=== PATIENT | male | born 1940 | race Caucasian/White ===

== ENCOUNTER 2021-12-25 14:19 | Outpatient (CLI) | payer MEDICARE, OTHER ==
[2021-12-25 20:41] LABS: CALCIUM 9.2 mg/dL (8.5-10.3); CREATININE 0.9 mg/dL (0.6-1.2); MAGNESIUM 2.1 mg/dL (1.7-2.8); POTASSIUM 4.3 mmol/L (3.5-5.0)
== END 2021-12-25 14:20 | disposition home or self-care (01) ==
LOC: LAB.S 14:19
DX: I49.3 Ventricular premature depolarization (principal)
CPT/HCPCS: 36415; 80048; 83735

== ENCOUNTER 2022-03-08 08:00 | Outpatient (CLI) | payer MEDICARE, OTHER ==
--- NOTE | 2022-03-08 11:44 | XRAY Report ---
PROCEDURE: Abdomen 1 View X-Ray INDICATIONS: ABDOMINAL BLOATING TECHNIQUE: One view of the abdomen acquired. COMPARISON: None FINDINGS: Surgical changes and devices: Postsurgical changes are noted in right abdomen with multiple sutures s een.. Bowel: Bowel gas pattern is nonobstructive. No gross pneumoperitoneum. Soft tissues: No suspicious abdominal calcifications. Visualized solid organ contours appear normal in size. Bones: No suspicious bony lesions. IMPRESSION: No evidence of bowel obstruction or gross free air. No abnormal renal calcifications are seen. Postsu rgical changes in right abdomen. Reviewed by: Bhaskar Maya MD on 03/08/2022 11:43 AM PDT Approved by: Bhaskar Maya MD on 03/08/2022 11:43 AM PDT Station ID: [id number]
== END 2022-03-08 23:59 | disposition home or self-care (01) ==
LOC: DI.S 08:00
PROVIDERS: ATTEND Physician Assistant Medical
DX: R14.0 Abdominal distension (gaseous) (principal)

== ENCOUNTER 2022-03-10 08:15 | Emergency (ER) | payer MEDICARE, OTHER ==
[2022-03-10 09:05] LABS: BASOPHILS # (AUTO) 0.1 10^3/uL (0.0-0.1); EOSINOPHILS # (AUTO) 0.2 10^3/uL (0.0-0.7); EOSINOPHILS % (AUTO) 2.5 %; HCT - HEMATOCRIT 46.8 % (42.0-52.0); HGB - HEMOGLOBIN 15.4 g/dL (14.0-18.0); LYMPHOCYTES # (AUTO) 1.8 10^3/uL (1.5-3.5); LYMPHOCYTES % (AUTO) 29.4 %; MEAN CORPUSCULAR HEMOGLOBIN 32.4 pg (27.0-31.0); MEAN CORPUSCULAR HGB CONC 32.9 g/dL (32.0-36.0); MEAN CORPUSCULAR VOLUME 98.5 fL (80.0-94.0); MEAN PLATELET VOLUME 9.1 fL (7.4-11.4); MONOCYTES # (AUTO) 0.8 10^3/uL (0.0-1.0); MONOCYTES % (AUTO) 12.5 %; NEUTROPHILS # (AUTO) 3.3 10^3/uL (1.5-6.6); NEUTROPHILS % (AUTO) 54.4 %; PLT - PLATELET COUNT 174 10^3/uL (130-450); RED BLOOD COUNT 4.75 10^6/uL (4.70-6.10); RED CELL DISTRIBUTION WIDTH 11.6 % (12.0-15.0); WHITE BLOOD COUNT 6.1 x10^3/uL (4.8-10.8)
[2022-03-10 09:25] LABS: ALBUMIN 4.2 g/dL (3.2-5.5); ALBUMIN/GLOBULIN RATIO 1.3 (1.0-2.2); BILIRUBIN,TOTAL 0.8 mg/dL (0.2-1.0); CALCIUM 9.4 mg/dL (8.5-10.3); POTASSIUM 3.9 mmol/L (3.5-5.0); TOTAL PROTEIN 7.4 g/dL (6.7-8.2)
[2022-03-10 10:13] LABS: BILIRUBIN,URINE NEGATIVE (NEGATIVE); GLUCOSE, URINE (UA) NEGATIVE (NEGATIVE); KETONES,URINE (UA) TRACE mg/dL (NEGATIVE); LEUKOCYTE ESTERASE, URINE NEGATIVE (NEGATIVE); NITRITE,URINE NEGATIVE (NEGATIVE); OCCULT BLOOD,URINE NEGATIVE (NEGATIVE); PROTEIN,URINE NEGATIVE (NEGATIVE); UROBILINOGEN,URINE 0.2 (NORMAL) E.U./dL (NORMAL)
[2022-03-10 10:14] LABS: CLARITY,URINE CLEAR (CLEAR)
--- NOTE | 2022-03-10 11:18 | CT Report ---
PROCEDURE: CT abdomen and pelvis without contrast INDICATIONS: excessive gas with concern for lymphoma TECHNIQUE: Noncontrast 5 mm thick sections acquired from the diaphragms to the symphysis. 5 mm coronal and sagi ttal reformats were then performed. For radiation dose reduction, the following was used: automated exposure control, adjustment of mA and/or kV according to patient size. COMPARISON: None. FINDINGS: Lower thorax: The lung bases are clear. Heart size normal. No hiatal hernia. Liver: Normal in size and attenuation. No contour deformity present. Biliary system: No calcified cholelithiasis or pericholecystic inflammation. No evidence of bile du ct dilatation. Pancreas: Unremarkable without mass or inflammation evident. Spleen: Normal in size and density. Adrenals: Normal morphology and density. Reproductive system: Prostatic enlargement measures 6.7 x 5.9 cm Urinary system: Normal renal size and attenuation. No renal calculi, hydronephrosis, or solid mass p resent. Urinary bladder unremarkable. Gastrointestinal system: The bowel appears unremarkable with no evidence of bowel obstruction or inf lammation. The stomach appears unremarkable. Multiple diverticula arise from the sigmoid colon withou t focal diverticulitis Appendix: No findings to suggest acute appendicitis. Peritoneal spaces: No mesenteric or retroperitoneal adenopathy. No free air. No free fluid. Vasculature: Atherosclerotic calcification of the abdominal aorta without evidence of aneurysm. Musculoskeletal: Normal bone mineralization. No acute fractures. Abdominal wall intact without gin dence of ventral or inguinal hernias. 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 No acute noncontrast CT findings in the abdomen or pelvis. 2. Prostatic hypertrophy and sigmoid diverticulosis without evidence of diverticulitis Reviewed by: Vicente Sr MD on 03/10/2022 10:17 AM [facility] Approved by: Vicente Sr MD on 03/10/2022 10:17 AM [email or web address] Station ID: [id number]
--- NOTE | 2022-03-10 11:50 | ED Physician Documentation ---
PD HPI ABD PAIN - Stated complaint Stated Complaint: abd px - Chief complaint Chief Complaint: Abd Pain - History obtained from History obtained from: Patient, Family - History of Present Illness Timing - onset: How many months ago (2) Timing - duration: Months (2) Timing - details: Gradual onset, Still present, Waxing and waning Quality: Cramping, Pain Location: All over / everywhere Improved by: Laying still, BM, Position, Other (burping and flatulance) Worsened by: Position, Palpation, Other (swallowing air.) Associated symptoms: Weight loss. No: Nausea, Vomiting Similar symptoms before: Has not had sx before Recently seen: Other - Additional information Additional information: 81 y/o male has changed his diet, stopped nicotine, alcohol and caffeine at the first of the year. He has developed excessive gas and burping. The patient is complaining of pain generally to the abdomen and he is mostly concerned about the possibility of lymphoma as he as these are the symptoms the patient's mother had right before she of lymphoma. Review of Systems Constitutional: denies: Fever Ears: denies: Ear pain Nose: denies: Congestion Throat: denies: Sore throat Cardiac: reports: Palpitations. denies: Chest pain / pressure Respiratory: denies: Dyspnea, Cough GI: reports: Abdominal Pain, Other (lots of gas and burping). denies: Vomiting, Constipation, Diarrhea : denies: Dysuria, Frequency Skin: denies: Rash Musculoskeletal: denies: Neck pain, Back pain, Extremity pain Neurologic: denies: Generalized weakness, Focal weakness, Numbness PD PAST MEDICAL HISTORY - Past Medical History Past Medical History: Yes Cardiovascular: Hypertension, High cholesterol Respiratory: None Endocrine/Autoimmune: None GI: None : None HEENT: None Psych: None Musculoskeletal: None Derm: None - Past Surgical History Past Surgical History: Yes HEENT: Tonsil/Adenoidectomy Derm: Skin cancer surgery - Present Medications Home Medications: Ambulatory Orders Medication Instructions Recorded Confirmed Aspirin [Aspir 81] 81 mg PO 05/06/13 05/06/13 Hydroxyzine Pamoate 25 - 50 mg PO Q6-8H PRN #20 capsule 05/06/13 Simvastatin [Zocor] 20 mg PO 05/06/13 05/06/13 Triamterene/Hydrochlorothiazid 1 05/06/13 05/06/13 [Dyazide 37.5-25 Capsule] predniSONE [Deltasone] 40 mg PO DAILY 4 Days tablet 05/06/13 - Allergies Allergies/Adverse Reactions: Allergies Allergy/AdvReac Type Severity Reaction Status Date / Time brimonidine Allergy Unknown Verified 03/10/22 08:52 - Social History Does the pt smoke?: No Smoking Status: Never smoker Does the pt drink ETOH?: Yes Does the pt have substance abuse?: No - Immunizations Immunizations are current?: Yes - POLST Patient has POLST: No PD ED PE NORMAL - General General: Alert and oriented X 3, No acute distress, Well developed/nourished - HEENT HEENT: Atraumatic, PERRL, EOMI - Neck Neck: Supple, no meningeal sign - Cardiac Cardiac: RRR, No murmur - Respiratory Respiratory: No respiratory distress, Clear bilaterally - Abdomen Abdomen: Normal bowel sounds, Soft, No organomegaly, Other (distended mild general tenderness without focal tenderness) - Back Back: No CVA TTP, No spinal TTP - Derm Derm: Normal color, Warm and dry, No rash - Extremities Extremities: No deformity, No edema - Neuro Neuro: Alert and oriented X 3, [facility] 2-12 intact, No motor deficit, No sensory deficit, Normal speech Eye Opening: Spontaneous Motor: Obeys Commands Verbal: Oriented GCS Score: 15 - Psych Psych: Normal mood, Normal affect Results - Vitals Vitals: Vital Signs - 24 hr 03/10/22 03/10/22 03/10/22 08:43 10:27 12:01 Temperature 36.6 C Heart Rate 70 75 68 Respiratory 14 22 16 Rate Blood Pressure 152/62 H 164/81 H 137/69 H O2 Saturation 99 99 20 L Oxygen O2 Source Room air - Labs Labs: Laboratory Tests 03/10/22 03/10/22 03/10/22 08:55 09:02 09:02 WBC 6.1 RBC 4.75 Hgb 15.4 Hct 46.8 MCV 98.5 H MCH 32.4 H MCHC 32.9 RDW 11.6 L Plt Count 174 MPV 9.1 Neut # (Auto) 3.3 Lymph # (Auto) 1.8 [place] # (Auto) 0.8 Eos # (Auto) 0.2 Baso # (Auto) 0.1 Absolute Nucleated RBC 0.00 Nucleated RBC % 0.0 Sodium 140 Potassium 3.9 Chloride 101 Carbon Dioxide 30 Anion Gap 9.0 BUN 16 Creatinine 1.0 Estimated GFR (MDRD) 72 L Glucose 101 H Calcium 9.4 Total Bilirubin 0.8 AST 26 ALT 22 Alkaline Phosphatase 75 Total Protein 7.4 Albumin 4.2 Globulin 3.2 Albumin/Globulin Ratio 1.3 Lipase 33 Urine Color YELLOW Urine Clarity CLEAR Urine pH 6.0 Ur Specific [place] 1.015 Urine Protein NEGATIVE Urine Glucose (UA) NEGATIVE Urine Ketones TRACE Urine Occult Blood NEGATIVE Urine Nitrite NEGATIVE Urine Bilirubin NEGATIVE Urine Urobilinogen 0.2 (NORMAL) Ur Leukocyte Esterase NEGATIVE Ur Microscopic Review NOT INDICATED Urine Culture Comments NOT INDICATED - Rads (name of study) CT abdomen pelvis without Radiology: Prelim report reviewed (Impression: 1. No acute contrast CT findings in the abdomen or pelvis. Prostatic hypertrophy and sigmoid diverticulosis without evidence of diverticulitis.), EMP read indepedently, See rad report PD MEDICAL DECISION MAKING - ED course Complexity details: reviewed old records, reviewed results, re-evaluated patient, considered differential, d/w patient, d/w family ED course: 81-year-old male with excessive gas and burping after changing his diet dramatically is concerned about the possibility of lymphoma as these were symptoms his mother had right before she of lymphoma. The patient has become excessively anxious about this and today we were able to provide some reassurance after CT scanning of the abdomen pelvis demonstrated what looks to be a lot of gas and stool throughout the colon. I provided some direction to the patient to attempt to change his diet further to reduce the gas and resolve constipation. Departure - Departure Disposition: 01 Home, Self Care Clinical Impression: Gases Constipation Qualifiers: Constipation type: unspecified constipation type Qualified Code(s): K59.00 - Constipation, unspecified Condition: Stable Instructions: ED Constipation, ED Gas Bloating Follow-Up: STACI MOHAN MD [Primary Care Provider] - Comments: Anika, today there is no evidence of tumor or lymphoma on your CT scan. There is excessive stool and gas present and this is likely due to a change in your diet and maybe air swallowing. Discharge Date/Time: 03/10/22 12:03
[2022-03-10 12:02] VITALS: BP 137/69
--- OUTSIDE RECORDS SUMMARY | 2022-03-14 15:35 | EXTERNAL MEDICAL SUMMARY RPT | Continuity of Care Document ---
:1940 Author Organization [facility] Address [address] [phone] Phone Allergies No information. Encounters No information. Functional Status No information. Immunizations No information. Medications No information. Problems No information. Procedures date description facility [id number] Visit Code Hold [facility] [place] Results/Labs No information. Social History date description facility [id number] Former smoker [facility] [place] Vital Signs date measurement value units [id number] BMI BMI 22.23 kg/m2 [id number]+0000 BP_diastolic BP_diastolic 80 mm[H g] [id number]+0000 BP_systolic BP_systolic 152 mm[Hg] [id number]+0000 heart_rate heart_rate 55 /min [id number]+0000 height_metric height_metric 175.26 cm [id number]+0000 height_standard height_standard 69 in [id number]+0000 respiration_rate respiration_rate 15 /min [id number]+0000 temperature_metric temperature_metric 36.67 C [id number]+0000 temperature_standard temperature_standard 9 8 F [id number]+0000 weight_metric weight_metric 68.04 kg [id number]+0000 weight_standard weight_standard 150 lb
== END 2022-03-10 12:03 | disposition home or self-care (01) ==
LOC: ED 08:15
DX: K59.00 Constipation, unspecified (principal); R14.1 Gas pain; I10 Essential (primary) hypertension; Z87.891 Personal history of nicotine dependence
CPT/HCPCS: 36415; 80053; 81001; 81003; 83690; 85025; 87086; 99282; 99284

== ENCOUNTER 2022-03-18 08:00 | Outpatient (CLI) | payer MEDICARE, OTHER ==
[2022-03-18 20:32] LABS: H. PYLORIS ANTIGEN STL NEGATIVE (Negative)
== END 2022-03-18 23:59 | disposition home or self-care (01) ==
LOC: LAB 08:00
PROVIDERS: ATTEND Physician Assistant
DX: R19.7 Diarrhea, unspecified (principal)
CPT/HCPCS: 87045; 87046; 87329; 87338; 87427

== ENCOUNTER 2023-09-24 08:00 | Outpatient (CLI) | payer MEDICARE, OTHER | END 2023-09-24 08:01 | disposition home or self-care (01) | LOC: LAB.S 08:00 → LAB.F 08:01 | PROVIDERS: ATTEND Registered Nurse | DX: J02.9 Acute pharyngitis, unspecified (principal) ==

== ENCOUNTER 2023-09-24 08:00 | Outpatient (CLI) | payer MEDICARE, OTHER ==
--- NOTE | 2023-09-24 10:54 | XRAY Report ---
PROCEDURE: Chest 2V INDICATIONS: ACUTE COUGH TECHNIQUE: 2 views of the chest were acquired. COMPARISON: None. FINDINGS: Surgical changes and devices: None. Lungs and pleura: No pleural effusions or pneumothorax. Lungs are clear. Mediastinum: Mediastinal contours appear normal. Heart size is normal. Bones and chest wall: No suspicious bony lesions. Overlying soft tissues appear unremarkable. IMPRESSION: No acute cardiopulmonary process. Reviewed by: Hal Lujan MD on 09/24/2023 10:53 AM [facility] Approved by: Hal Lujan MD on 09/24/2023 10:53 AM [facility] Station ID: [id number]
== END 2023-09-24 23:59 | disposition home or self-care (01) ==
LOC: DI.S 08:00
PROVIDERS: ATTEND Registered Nurse
DX: R05.1 Acute cough (principal); J02.9 Acute pharyngitis, unspecified

== ENCOUNTER 2023-10-08 07:00 | Outpatient (CLI) | payer MEDICARE ==
--- NOTE | 2023-10-08 13:56 | XRAY Report ---
PROCEDURE: Ribs w/PA Chest 3+V RT INDICATIONS: RIGHT SIDED RIB PAIN TECHNIQUE: 2 views of the ribs were acquired, along with a single view chest. COMPARISON: None. FINDINGS: Surgical changes and devices: Questionable sutures project over the abdomen. Correlate with history. Bones and chest wall: No fractures or dislocations. No suspicious bony lesions. Lungs and pleura: No pleural effusions or pneumothorax. Lungs appear clear. Mediastinum: Mediastinal contours appear normal. Heart size is normal. IMPRESSION: No displaced rib fracture or pneumothorax. Reviewed by: Tai Talavera MD on 10/08/2023 1:55 PM PST Approved by: Tai Talavera MD on 10/08/2023 1:55 PM PST Station ID: [id number]
== END 2023-10-08 23:59 | disposition home or self-care (01) ==
LOC: DI.S 07:00
PROVIDERS: ATTEND Registered Nurse
DX: R07.81 Pleurodynia (principal)

== ENCOUNTER 2023-10-10 12:18 | Emergency (ER) | payer MEDICARE ==
--- NOTE | 2023-10-10 13:47 | ED Physician Documentation ---
PD HPI MAJOR TRAUMA - Stated complaint Stated Complaint: GLF/COUGH/FLANK PAIN - Chief complaint Chief Complaint: Trauma Ch/Bk - History obtained from History obtained from: Patient - Additional information Additional information: Slipped on the ice 2 days ago and fell hitting his right side hard. He saw stars but has no persistent headache or head injury per se. He went to the clinic and had negative plain films but feels like there is something still very wrong in his right chest and feels like his abdomen is bloated. PD PAST MEDICAL HISTORY - Past Medical History Past Medical History: Yes Cardiovascular: Hypertension, High cholesterol Respiratory: None Endocrine/Autoimmune: None GI: None : None HEENT: None Psych: None Musculoskeletal: None Derm: None - Past Surgical History Past Surgical History: Yes HEENT: Tonsil/Adenoidectomy Derm: Skin cancer surgery - Present Medications Home Medications: Ambulatory Orders Medication Instructions Recorded Confirmed Simvastatin [Zocor] 20 mg PO MOWEFR 05/06/13 10/10/23 Betaxolol HCl [Betaxolol HCl 0.5%] 1 drops EACHEYE BID 03/11/22 10/10/23 Dorzolamide HCl/Pf [Dorzolamide 2% 1 drops EACHEYE TID 03/11/22 10/10/23 Eye Drop] Latanoprostene Bunod [Vyzulta] 1 drops EACHEYE QPM 03/11/22 10/10/23 - Allergies Allergies/Adverse Reactions: Allergies Allergy/AdvReac Type Severity Reaction Status Date / Time brimonidine Allergy Unknown Verified 10/10/23 12:27 - Social History Does the pt smoke?: No Smoking Status: Never smoker Does the pt drink ETOH?: Yes Does the pt have substance abuse?: No - Immunizations Immunizations are current?: Yes - POLST Patient has POLST: No PD ED PE NORMAL - Vitals Vital signs reviewed: Yes - General General: Alert and oriented X 3, No acute distress - HEENT HEENT: PERRL, EOMI - Neck Neck: No bony TTP - Cardiac Cardiac: RRR, No murmur - Respiratory Respiratory: No respiratory distress, Other (No specific bruising of the right chest wall. He has some diffuse tenderness of the right chest wall.) - Abdomen Abdomen: Other (Mildly distended, soft with mild diffuse tenderness.) - Back Back: No CVA TTP, No spinal TTP - Derm Derm: Normal color, Warm and dry - Extremities Extremities: No edema, No calf tenderness / cord - Neuro Neuro: Alert and oriented X 3 Eye Opening: Spontaneous Motor: Obeys Commands Verbal: Oriented GCS Score: 15 Results - Vitals Vitals: Vital Signs - 24 hr 10/10/23 12:28 Temperature 36.8 C Heart Rate 62 Respiratory 16 Rate Blood Pressure 143/61 H O2 Saturation 98 Oxygen O2 Source Room air - Labs Labs: Laboratory Tests 10/10/23 10/10/23 13:45 13:45 WBC 10.2 RBC 4.44 L Hgb 14.3 Hct 44.0 MCV 99.1 H MCH 32.2 H MCHC 32.5 RDW 11.9 L Plt Count 247 MPV 8.3 Neut # (Auto) 7.0 H Lymph # (Auto) 1.5 [place] # (Auto) 1.3 H Eos # (Auto) 0.3 Baso # (Auto) 0.1 Absolute Nucleated RBC 0.00 Nucleated RBC % 0.0 Sodium 140 Potassium 4.1 Chloride 103 Carbon Dioxide 32 Anion Gap 5.0 L BUN 20 Creatinine 0.8 Estimated GFR (MDRD) 93 Glucose 102 Calcium 9.5 Total Bilirubin 0.9 AST 26 ALT 26 Alkaline Phosphatase 90 Total Protein 7.2 Albumin 4.3 Globulin 2.9 Albumin/Globulin Ratio 1.5 PD Medical Decision Making - ED course ED course: Healthy 83-year-old gentleman presents with chest and abdominal blunt force injuries with negative plain films of 2 days duration. He appears well but CT imaging is in order. He declines pain medication on initial evaluation. CBC and CMP unremarkable. Care to Dr Guevara at shift change pending imaging. Departure - Departure Forms: PCP List
[2023-10-10 13:51] LABS: BASOPHILS # (AUTO) 0.1 10^3/uL (0.0-0.1); BASOPHILS % (AUTO) 0.7 %; EOSINOPHILS # (AUTO) 0.3 10^3/uL (0.0-0.7); EOSINOPHILS % (AUTO) 3.1 %; HGB - HEMOGLOBIN 14.3 g/dL (14.0-18.0); LYMPHOCYTES # (AUTO) 1.5 10^3/uL (1.5-3.5); LYMPHOCYTES % (AUTO) 14.7 %; MEAN CORPUSCULAR HEMOGLOBIN 32.2 pg (27.0-31.0); MEAN CORPUSCULAR HGB CONC 32.5 g/dL (32.0-36.0); MEAN CORPUSCULAR VOLUME 99.1 fL (80.0-94.0); MEAN PLATELET VOLUME 8.3 fL (7.4-11.4); MONOCYTES # (AUTO) 1.3 10^3/uL (0.0-1.0); MONOCYTES % (AUTO) 12.9 %; NEUTROPHILS % (AUTO) 68.3 %; PLT - PLATELET COUNT 247 10^3/uL (130-450); RED BLOOD COUNT 4.44 10^6/uL (4.70-6.10); RED CELL DISTRIBUTION WIDTH 11.9 % (12.0-15.0); WHITE BLOOD COUNT 10.2 x10^3/uL (4.8-10.8)
[2023-10-10 14:04] LABS: ALBUMIN 4.3 g/dL (3.2-5.5); BILIRUBIN,TOTAL 0.9 mg/dL (0.2-1.0); CALCIUM 9.5 mg/dL (8.5-10.3); CREATININE 0.8 mg/dL (0.6-1.3); POTASSIUM 4.1 mmol/L (3.5-4.5); TOTAL PROTEIN 7.2 g/dL (6.4-8.9)
[2023-10-10 14:05] LABS: ALBUMIN/GLOBULIN RATIO 1.5 (1.0-2.2)
[2023-10-10] MEDS ORDERED: iohexoL-300 100 ML VIAL ONE (16:15)
[2023-10-10] MEDS ORDERED: ACETAMINOPHEN 325 MG TABLET PO STA (16:30)
--- NOTE | 2023-10-10 18:22 | CT Report ---
PROCEDURE: Abdomen/Pelvis W INDICATIONS: IV only/Chest / abd trauma R side CONTRAST: 100ml omni 300 TECHNIQUE: After the administration of intravenous contrast, a CT scan of the abdomen and pelvis was performed. Images were recorded and evaluated at appropriate window settings. Reformats: coronal and sagittal. F or radiation dose reduction, the following was used: automated exposure control, adjustment of mA and /or kV according to patient size. COMPARISON: None. FINDINGS: Image quality: Excellent. Lung bases and heart: Small hiatal hernia. Liver: No solid mass. Gallbladder and biliary tree: No radiopaque stones or wall thickening. No biliary dilation. Spleen: No splenomegaly. Pancreas: No pancreatic ductal dilation. Adrenals: Nodular thickening of the left adrenal gland, similar to 2021, favoring a benign etiology. Kidneys and ureters: No hydronephrosis. No renal cystic lesion which requires follow up. No solid mas s. Single, punctate right-sided obstructive nephrolithiasis. Bowel and peritoneum: No bowel distension. No pathologic free fluid. Diverticulosis without evidence of diverticulitis. Lymph nodes: No central or retroperitoneal adenopathy. Vessels: No infrarenal aortic aneurysm. PELVIS Reproductive organs: Prostatomegaly.. Bladder: No abnormal wall thickening, accounting for underdistention. Pelvic lymph nodes: No pelvic adenopathy by size criteria. Bones: No aggressive osseous abnormality. Other: No significant ventral or inguinal hernia. IMPRESSION: No evidence of traumatic injury. Reviewed by: Juanito Martinez MD on 10/10/2023 6:20 PM PST Approved by: Juanito Martinez MD on 10/10/2023 6:20 PM PST Station ID: [id number]
--- NOTE | 2023-10-10 18:23 | CT Report ---
PROCEDURE: Chest W INDICATIONS: IV only/Chest / abd trauma R side CONTRAST: 100ml omni 300 TECHNIQUE: After the administration of intravenous contrast, a CT scan of the chest was performed. Images were recorded and evaluated at appropriate window settings. Reformats: axial MIP of the chest, coronal and sagittal. For radiation dose reduction, the following was used: automated exposure control, adjustme nt of mA and/or kV according to patient size. COMPARISON: None. FINDINGS: Image quality: Excellent. Lungs and pleura: No consolidation. No pleural effusions. No pneumothorax. No suspicious pulmonary n odules which require follow up. Mediastinum: Heart size is normal. No pericardial effusion. No large vessel abnormality. No mediastin al adenopathy by size criteria. Small hiatal hernia.5 Chest wall and lower neck: Thyroid is unremarkable. No axillary or supraclavicular adenopathy by size . Bones: No aggressive osseous abnormality. Upper Abdomen: Unremarkable. IMPRESSION: No evidence of traumatic injury. Reviewed by: Juanito Martinez MD on 10/10/2023 6:22 PM PST Approved by: Juanito Martinez MD on 10/10/2023 6:22 PM PST Station ID: [id number]
--- NOTE | 2023-10-10 18:51 | ED Physician Documentation ---
ED Addendum - Addendum Addendum: 10/10/23 18:52 83-year-old male signed out to me by Dr. Dahl awaiting CT scan of the chest, abdomen and pelvis. CT scan of the chest abdomen pelvis did not show any acute abnormalities other than a right-sided posterior rib fracture. It is on the ninth rib. No pulmonary contusion or pneumothorax. Pain well-controlled. Will prescribe Vicodin for home. Patient is ambulating without difficulty. No flail chest. No hypoxia. No respiratory distress. Patient counseled regarding signs and symptoms for which I believe and urgent re-evaluation would be necessary. Patient with good understanding of and agreement to plan and is comfortable going home at this time This document was made in part using voice recognition software. While efforts are made to proofread this document, sound alike and grammatical errors may occur. Departure - Departure Disposition: Home, Self Care Clinical Impression: Viral URI Fracture of rib Qualifiers: Encounter type: initial encounter Rib fracture type: single rib Fracture type: closed Laterality: right Qualified Code(s): S22.31XA - Fracture of one rib, right side, initial encounter for closed fracture Constipation Qualifiers: Constipation type: unspecified constipation type Qualified Code(s): K59.00 - Constipation, unspecified Condition: Good Instructions: ED Viral Syndrome, ED Fx Rib Follow-Up: STACI MOHAN MD [Primary Care Provider] - Within 1 week Prescriptions: polyethylene glycoL 3350(BULK) [Miralax] 17 gm PO DAILY PRN #1 each PRN Reason: Constipation HYDROcod/ACETAM 5/325 [[place] 5/325] 1 - 2 ea PO Q6H PRN #14 tablet PRN Reason: Pain Comments: Your prescriptions were sent to [facility] in [place]. Please follow-up with your doctor for further care there. Please return if you worsen. You do have a right-sided rib fracture, this will heal on its own. There is no evidence of pulmonary contusion or pneumothorax. You also appear to have a viral upper respiratory infection. No evidence of pneumonia. The Vicodin will help with your pain and your cough. You do have some constipation on CT scan and this may be causing the distention you are feeling. Will place you on MiraLAX for this. Make sure you are drinking plenty of water. I am prescribing a short course of narcotic pain medication for you. These are potentially dangerous and addictive medications that should be used carefully. These medications may constipate you. Take an [id number] stool softener (docusate) twice daily with plenty of water while taking these medications. If you go 24 hours without a bowel movement, take [id number] miralax, per package instructions. Do not drink or drive while taking these medications. If you received narcotic or sedating medications while in the emergency department, do not drive for 24 hours. Store this medication in a safe, secure place and out of reach of children. It is a violation of federal law to give or sell this medication to another person or to use in a manner other than prescribed. The ED will not refill narcotic prescriptions, including prescriptions lost or stolen. To dispose of unwanted medications: 1. [facility] at [address] [facility] in [place] has a medication drop box. They accept prescription medications (in pill form) Friday through Friday 9:00 a.m. to 5:00 p.m. 2. [facility] accepts prescription medications (in pill form only) for disposal year round. Call for more information. 3. Contact the [facility] for the next [facility] sponsored prescription drug collection event. , [phone], or [phone]; Forms: PCP List
[2023-10-10] MEDS ORDERED: iohexoL-300 100 ML VIAL IVP ONE (19:17)
[2023-10-10 19:22] VITALS: BP 130/60; O2SAT 100
== END 2023-10-10 19:15 | disposition home or self-care (01) ==
LOC: ED 12:18
DX: J06.9 Acute upper respiratory infection, unspecified (principal); S22.31XA Fracture of one rib, right side, initial encounter for closed fracture; W00.0XXA Fall on same level due to ice and snow, initial encounter
CPT/HCPCS: 36415; 71260; 74177; 80053; 85025; 99284; A9270; Q9967